=== PATIENT | female | born 2000 ===

== ENCOUNTER 2021-07-01 16:33 | Emergency (ER) | payer SELFPAY ==
--- NOTE | 2021-07-01 21:41 | Emergency Department Report ---
ED General Adult HPI - General Chief complaint: Skin Rash Stated complaint: A RASH/ VAG ITCH Time Seen by Provider: 07/01/21 21:36 Source: patient Mode of arrival: Ambulatory Limitations: No Limitations - History of Present Illness Initial comments: Patient 20-year-old -[place] female with history of anogenital herpes who presents for rash to groin and bilateral breast. Patient states it does not appears normal herpes outbreak. Herpes is generally exacerbated by menses. And self resolved. Patient denies vaginal discharge denies fevers or chills there is no abdominal pain no abnormal menses no back pain no dysuria frequency or urgency. Rash exacerbated by itch scratch cycle. Rash is resolved by itch scratch cycle patient states identical rash to posterior breast bilateral. Patient does now endorse a history of asthma there is been no cough no wheezing no shortness of breath. - Related Data Previous Rx's Medication Instructions Recorded Last Taken Type Clotrimazole 1% [Lotrimin 1%] 1 applic TP BID 7 Days #1 tube 07/01/21 Unknown Rx Allergies Allergy/AdvReac Type Severity Reaction Status Date / Time No Known Allergies Allergy Verified 07/01/21 20:12 ED Review of Systems ROS: Stated complaint: A RASH/ VAG ITCH Other details as noted in HPI Constitutional: denies: chills, fever Eyes: denies: eye pain, eye discharge, vision change ENT: denies: ear pain, throat pain Respiratory: denies: cough, shortness of breath, wheezing Cardiovascular: denies: chest pain, palpitations Endocrine: no symptoms reported Gastrointestinal: denies: abdominal pain, nausea, vomiting, diarrhea Genitourinary: denies: urgency, dysuria, frequency, hematuria, discharge, dyspareunia Musculoskeletal: denies: back pain, joint swelling, arthralgia Skin: rash (Dry flaky to the groin and breast), other Neurological: denies: headache, weakness, paresthesias Psychiatric: denies: anxiety, depression Hematological/Lymphatic: denies: easy bleeding, easy bruising ED Past Medical Hx - Medications Home Medications: Home Medications Medication Instructions Recorded Confirmed Last Taken Type Clotrimazole 1% [Lotrimin 1%] 1 applic TP BID 7 Days #1 tube 07/01/21 Unknown Rx ED Physical Exam - General Limitations: No Limitations General appearance: alert, in no apparent distress - Head Head exam: Present: atraumatic, normocephalic - Eye Eye exam: Present: normal appearance, EOMI Pupils: Present: normal accommodation - ENT ENT exam: Present: mucous membranes moist - Neck Neck exam: Present: normal inspection - Respiratory Respiratory exam: Present: normal lung sounds bilaterally. Absent: respiratory distress, wheezes - Cardiovascular Cardiovascular Exam: Present: regular rate, normal rhythm, normal heart sounds. Absent: systolic murmur, diastolic murmur, rubs, gallop - GI/Abdominal GI/Abdominal exam: Present: soft, normal bowel sounds. Absent: distended, tenderness - Rectal Rectal exam: Present: deferred - External exam: Present: normal external exam. Absent: erythema, swelling, lesions, lacerations, ecchymosis, bleeding Speculum exam: Present: other (Deferred by patient) - Extremities Exam Extremities exam: Present: normal inspection, full ROM, normal capillary refill. Absent: tenderness - Back Exam Back exam: Present: normal inspection. Absent: CVA tenderness (R), CVA tenderness (L) - Neurological Exam Neurological exam: Present: alert, oriented X3, CN II-XII intact - Psychiatric Psychiatric exam: Present: normal affect - Skin Skin exam: Present: dry, intact, rash (Dry flaky smooth no weeping no lesions no open sores. To bilateral under breast and groin.) ED Course Vital Signs 07/01/21 19:20 Temperature 98.2 F Pulse Rate 82 Respiratory 20 Rate Blood Pressure 118/88 O2 Sat by Pulse 100 Oximetry ED Medical Decision Making - Medical Decision Making Rash consistent with tinea plan treat for same. This is not a herpetic outbreak. There is no wheezing no cough there is no fevers no chills no vaginal discharge no abnormal bleeding. She will follow-up primary care doctor in 2 to 3 days. Patient will return to emergency department for symptoms worsen. Patient verbalized agreement understanding of discharge plan patient DC'd in stable condition at this time. Critical care attestation.: If time is entered above; I have spent that time in minutes in the direct care of this critically ill patient, excluding procedure time. ED Disposition Clinical Impression: Tinea Disposition: HOME / SELF CARE / HOMELESS Is pt being admited?: No Does the pt Need Aspirin: No Condition: Stable Instructions: [place] Itch Prescriptions: Clotrimazole 1% [Lotrimin 1%] 1 applic TP BID 7 Days #1 tube Referrals: CRICKET GARZA MD [Staff Physician] - 3-5 Days Forms: Work/School Release Form(ED) Time of Disposition: 21:43
[2021-07-01 21:51] VITALS: BP 116/74
== END 2021-07-01 22:25 | disposition home or self-care (01) ==
LOC: ED 16:33
DX: B35.9 Dermatophytosis, unspecified (principal)
CPT/HCPCS: 99282